=== PATIENT | male | born 1960 | race Caucasian/White ===

== ENCOUNTER → 2018-10-03 | Outpatient (CLI) | payer OTHER | LOC: HYPER 07:01 | DX: T81.89XD Other complications of procedures, not elsewhere classified, subsequent encounter (principal); I83.212 Varicose veins of right lower extremity with both ulcer of calf and inflammation; L97.212 Non-pressure chronic ulcer of right calf with fat layer exposed; I83.213 Varicose veins of right lower extremity with both ulcer of ankle and inflammation; L97.312 Non-pressure chronic ulcer of right ankle with fat layer exposed; K21.9 Gastro-esophageal reflux disease without esophagitis; G47.33 Obstructive sleep apnea (adult) (pediatric); E66.01 Morbid (severe) obesity due to excess calories; M19.90 Unspecified osteoarthritis, unspecified site; J43.8 Other emphysema; R60.0 Localized edema; R09.02 Hypoxemia; Z74.09 Other reduced mobility; Z68.43 Body mass index [BMI] 50.0-59.9, adult; Z87.891 Personal history of nicotine dependence; Y83.8 Other surgical procedures as the cause of abnormal reaction of the patient, or of later complication, without mention of misadventure at the time of the procedure ==

== ENCOUNTER → 2018-10-18 | Outpatient (CLI) | payer OTHER | LOC: HYPER 06:51 | DX: I83.212 Varicose veins of right lower extremity with both ulcer of calf and inflammation (principal); L97.812 Non-pressure chronic ulcer of other part of right lower leg with fat layer exposed; M19.90 Unspecified osteoarthritis, unspecified site; R60.0 Localized edema; K21.9 Gastro-esophageal reflux disease without esophagitis; E66.01 Morbid (severe) obesity due to excess calories; G47.33 Obstructive sleep apnea (adult) (pediatric); J43.8 Other emphysema; Z74.09 Other reduced mobility; Z68.43 Body mass index [BMI] 50.0-59.9, adult; Z87.891 Personal history of nicotine dependence ==

== ENCOUNTER → 2018-11-01 | Outpatient (CLI) | payer OTHER | LOC: HYPER 06:43 | DX: I83.212 Varicose veins of right lower extremity with both ulcer of calf and inflammation (principal); L97.812 Non-pressure chronic ulcer of other part of right lower leg with fat layer exposed; M19.90 Unspecified osteoarthritis, unspecified site; K21.9 Gastro-esophageal reflux disease without esophagitis; E66.01 Morbid (severe) obesity due to excess calories; G47.30 Sleep apnea, unspecified; R60.0 Localized edema; J43.8 Other emphysema; Z87.01 Personal history of pneumonia (recurrent); Z74.09 Other reduced mobility; Z68.43 Body mass index [BMI] 50.0-59.9, adult; Z87.891 Personal history of nicotine dependence ==

== ENCOUNTER → 2018-11-21 | Outpatient (CLI) | payer OTHER | LOC: HYPER 02:43 | DX: I83.212 Varicose veins of right lower extremity with both ulcer of calf and inflammation (principal); L97.212 Non-pressure chronic ulcer of right calf with fat layer exposed; E66.01 Morbid (severe) obesity due to excess calories; K21.9 Gastro-esophageal reflux disease without esophagitis; M19.90 Unspecified osteoarthritis, unspecified site; G47.33 Obstructive sleep apnea (adult) (pediatric); R60.0 Localized edema; E87.6 Hypokalemia; J43.9 Emphysema, unspecified; Z87.891 Personal history of nicotine dependence; Z74.09 Other reduced mobility; Z68.43 Body mass index [BMI] 50.0-59.9, adult ==

== ENCOUNTER → 2018-12-04 | Outpatient (CLI) | payer OTHER | LOC: HYPER 08:36 | DX: I83.212 Varicose veins of right lower extremity with both ulcer of calf and inflammation (principal); L97.211 Non-pressure chronic ulcer of right calf limited to breakdown of skin; L97.812 Non-pressure chronic ulcer of other part of right lower leg with fat layer exposed; E66.01 Morbid (severe) obesity due to excess calories; R60.0 Localized edema; G25.81 Restless legs syndrome; G47.33 Obstructive sleep apnea (adult) (pediatric); J43.9 Emphysema, unspecified; K21.9 Gastro-esophageal reflux disease without esophagitis; M19.90 Unspecified osteoarthritis, unspecified site; Z68.43 Body mass index [BMI] 50.0-59.9, adult; Z74.09 Other reduced mobility; Z87.891 Personal history of nicotine dependence ==

== ENCOUNTER → 2019-01-29 | Outpatient (CLI) | payer OTHER | LOC: HYPER 14:10 | DX: I83.212 Varicose veins of right lower extremity with both ulcer of calf and inflammation (principal); L97.211 Non-pressure chronic ulcer of right calf limited to breakdown of skin; I83.018 Varicose veins of right lower extremity with ulcer other part of lower leg; L97.812 Non-pressure chronic ulcer of other part of right lower leg with fat layer exposed; E66.01 Morbid (severe) obesity due to excess calories; G25.81 Restless legs syndrome; G47.33 Obstructive sleep apnea (adult) (pediatric); R60.0 Localized edema; I27.20 Pulmonary hypertension, unspecified; K21.9 Gastro-esophageal reflux disease without esophagitis; M19.90 Unspecified osteoarthritis, unspecified site; Z74.09 Other reduced mobility; Z68.43 Body mass index [BMI] 50.0-59.9, adult; Z87.891 Personal history of nicotine dependence ==

== ENCOUNTER → 2019-02-15 | Outpatient (CLI) | payer OTHER | LOC: HYPER 09:01 | DX: I83.212 Varicose veins of right lower extremity with both ulcer of calf and inflammation (principal); L97.212 Non-pressure chronic ulcer of right calf with fat layer exposed; I83.018 Varicose veins of right lower extremity with ulcer other part of lower leg; L97.812 Non-pressure chronic ulcer of other part of right lower leg with fat layer exposed; K21.9 Gastro-esophageal reflux disease without esophagitis; M19.90 Unspecified osteoarthritis, unspecified site; J43.0 Unilateral pulmonary emphysema [MacLeod's syndrome]; E66.01 Morbid (severe) obesity due to excess calories; Z68.43 Body mass index [BMI] 50.0-59.9, adult; Z87.891 Personal history of nicotine dependence ==

== ENCOUNTER → 2019-02-28 | Outpatient (CLI) | payer OTHER | LOC: HYPER 14:04 | DX: I83.212 Varicose veins of right lower extremity with both ulcer of calf and inflammation (principal); L97.212 Non-pressure chronic ulcer of right calf with fat layer exposed; I83.218 Varicose veins of right lower extremity with both ulcer of other part of lower extremity and inflammation; L97.812 Non-pressure chronic ulcer of other part of right lower leg with fat layer exposed; K21.9 Gastro-esophageal reflux disease without esophagitis; M19.90 Unspecified osteoarthritis, unspecified site; J43.8 Other emphysema; E66.01 Morbid (severe) obesity due to excess calories; Z68.43 Body mass index [BMI] 50.0-59.9, adult; Z74.09 Other reduced mobility; Z87.891 Personal history of nicotine dependence ==

== ENCOUNTER → 2019-04-09 | Outpatient (CLI) | payer OTHER | LOC: HYPER 10:05 | DX: I83.018 Varicose veins of right lower extremity with ulcer other part of lower leg (principal); L97.812 Non-pressure chronic ulcer of other part of right lower leg with fat layer exposed; I83.212 Varicose veins of right lower extremity with both ulcer of calf and inflammation; L97.212 Non-pressure chronic ulcer of right calf with fat layer exposed; L84 Corns and callosities; E66.01 Morbid (severe) obesity due to excess calories; G25.81 Restless legs syndrome; G47.33 Obstructive sleep apnea (adult) (pediatric); R60.0 Localized edema; J43.9 Emphysema, unspecified; K21.9 Gastro-esophageal reflux disease without esophagitis; M19.90 Unspecified osteoarthritis, unspecified site; Z74.09 Other reduced mobility; Z87.891 Personal history of nicotine dependence; Z68.43 Body mass index [BMI] 50.0-59.9, adult ==

== ENCOUNTER → 2019-07-09 | Outpatient (CLI) | payer OTHER | LOC: HYPER 10:46 | DX: I83.218 Varicose veins of right lower extremity with both ulcer of other part of lower extremity and inflammation (principal); L97.812 Non-pressure chronic ulcer of other part of right lower leg with fat layer exposed; L84 Corns and callosities; R21 Rash and other nonspecific skin eruption; R60.0 Localized edema; E66.01 Morbid (severe) obesity due to excess calories; G25.81 Restless legs syndrome; G47.33 Obstructive sleep apnea (adult) (pediatric); J43.9 Emphysema, unspecified; K21.9 Gastro-esophageal reflux disease without esophagitis; M19.90 Unspecified osteoarthritis, unspecified site; Z68.43 Body mass index [BMI] 50.0-59.9, adult; Z87.891 Personal history of nicotine dependence; Z74.09 Other reduced mobility ==

== ENCOUNTER → 2019-07-31 | Outpatient (CLI) | payer OTHER | LOC: HYPER 10:48 | PROVIDERS: ATTEND Emergency Medicine | DX: I83.212 Varicose veins of right lower extremity with both ulcer of calf and inflammation (principal); L97.212 Non-pressure chronic ulcer of right calf with fat layer exposed; R21 Rash and other nonspecific skin eruption; R60.0 Localized edema; E66.01 Morbid (severe) obesity due to excess calories; G25.81 Restless legs syndrome; G47.33 Obstructive sleep apnea (adult) (pediatric); J43.9 Emphysema, unspecified; K21.9 Gastro-esophageal reflux disease without esophagitis; M19.90 Unspecified osteoarthritis, unspecified site; Z74.09 Other reduced mobility; Z68.43 Body mass index [BMI] 50.0-59.9, adult ==

== ENCOUNTER → 2019-09-02 | Outpatient (CLI) | payer OTHER | LOC: HYPER 10:02 | PROVIDERS: ATTEND Emergency Medicine Emergency Medical Services | DX: I83.212 Varicose veins of right lower extremity with both ulcer of calf and inflammation (principal); L97.812 Non-pressure chronic ulcer of other part of right lower leg with fat layer exposed; R60.0 Localized edema; E66.01 Morbid (severe) obesity due to excess calories; R21 Rash and other nonspecific skin eruption; G25.81 Restless legs syndrome; G47.33 Obstructive sleep apnea (adult) (pediatric); J43.9 Emphysema, unspecified; M19.90 Unspecified osteoarthritis, unspecified site; K21.9 Gastro-esophageal reflux disease without esophagitis; Z74.09 Other reduced mobility; Z68.43 Body mass index [BMI] 50.0-59.9, adult; Z87.891 Personal history of nicotine dependence ==

== ENCOUNTER → 2019-09-23 | Outpatient (CLI) | payer OTHER | LOC: HYPER 10:31 | PROVIDERS: ATTEND Emergency Medicine Emergency Medical Services | DX: I83.212 Varicose veins of right lower extremity with both ulcer of calf and inflammation (principal); L97.211 Non-pressure chronic ulcer of right calf limited to breakdown of skin; I83.218 Varicose veins of right lower extremity with both ulcer of other part of lower extremity and inflammation; L97.812 Non-pressure chronic ulcer of other part of right lower leg with fat layer exposed; R60.0 Localized edema; R21 Rash and other nonspecific skin eruption; K21.9 Gastro-esophageal reflux disease without esophagitis; M19.90 Unspecified osteoarthritis, unspecified site; G25.81 Restless legs syndrome; G47.33 Obstructive sleep apnea (adult) (pediatric); E66.01 Morbid (severe) obesity due to excess calories; Z68.43 Body mass index [BMI] 50.0-59.9, adult; Z87.891 Personal history of nicotine dependence; Z74.09 Other reduced mobility ==

== ENCOUNTER → 2019-10-14 | Outpatient (CLI) | payer OTHER | LOC: HYPER 10:48 | PROVIDERS: ATTEND Emergency Medicine Emergency Medical Services | DX: I83.212 Varicose veins of right lower extremity with both ulcer of calf and inflammation (principal); L97.211 Non-pressure chronic ulcer of right calf limited to breakdown of skin; I83.218 Varicose veins of right lower extremity with both ulcer of other part of lower extremity and inflammation; L97.812 Non-pressure chronic ulcer of other part of right lower leg with fat layer exposed; R21 Rash and other nonspecific skin eruption; K21.9 Gastro-esophageal reflux disease without esophagitis; M19.90 Unspecified osteoarthritis, unspecified site; G25.81 Restless legs syndrome; J43.9 Emphysema, unspecified; E66.01 Morbid (severe) obesity due to excess calories; G47.33 Obstructive sleep apnea (adult) (pediatric); Z74.09 Other reduced mobility; Z68.43 Body mass index [BMI] 50.0-59.9, adult; Z87.891 Personal history of nicotine dependence ==

== ENCOUNTER → 2019-11-12 | Outpatient (CLI) | payer OTHER | LOC: HYPER 11:19 | PROVIDERS: ATTEND Emergency Medicine | DX: I83.212 Varicose veins of right lower extremity with both ulcer of calf and inflammation (principal); L97.812 Non-pressure chronic ulcer of other part of right lower leg with fat layer exposed; L97.212 Non-pressure chronic ulcer of right calf with fat layer exposed; L97.312 Non-pressure chronic ulcer of right ankle with fat layer exposed; R21 Rash and other nonspecific skin eruption; E66.01 Morbid (severe) obesity due to excess calories; G25.81 Restless legs syndrome; G47.33 Obstructive sleep apnea (adult) (pediatric); R60.0 Localized edema; J43.9 Emphysema, unspecified; K21.9 Gastro-esophageal reflux disease without esophagitis; M19.90 Unspecified osteoarthritis, unspecified site; Z74.09 Other reduced mobility; Z87.891 Personal history of nicotine dependence; Z68.43 Body mass index [BMI] 50.0-59.9, adult ==

== ENCOUNTER → 2020-01-09 | Outpatient (CLI) | payer OTHER | LOC: HYPER 12-31 15:20 | PROVIDERS: ATTEND Emergency Medicine | DX: I83.212 Varicose veins of right lower extremity with both ulcer of calf and inflammation (principal); L97.212 Non-pressure chronic ulcer of right calf with fat layer exposed; I83.218 Varicose veins of right lower extremity with both ulcer of other part of lower extremity and inflammation; L97.812 Non-pressure chronic ulcer of other part of right lower leg with fat layer exposed; R21 Rash and other nonspecific skin eruption; R60.0 Localized edema; E66.01 Morbid (severe) obesity due to excess calories; G25.81 Restless legs syndrome; G47.33 Obstructive sleep apnea (adult) (pediatric); J43.9 Emphysema, unspecified; K21.9 Gastro-esophageal reflux disease without esophagitis; M19.90 Unspecified osteoarthritis, unspecified site; Z74.09 Other reduced mobility; Z87.891 Personal history of nicotine dependence; Z68.43 Body mass index [BMI] 50.0-59.9, adult ==

== ENCOUNTER → 2020-02-04 | Outpatient (CLI) | payer OTHER | LOC: HYPER 11:01 | PROVIDERS: ATTEND Emergency Medicine | DX: I83.212 Varicose veins of right lower extremity with both ulcer of calf and inflammation (principal); L97.212 Non-pressure chronic ulcer of right calf with fat layer exposed; I83.891 Varicose veins of right lower extremity with other complications; L97.812 Non-pressure chronic ulcer of other part of right lower leg with fat layer exposed; R60.0 Localized edema; R21 Rash and other nonspecific skin eruption; K21.9 Gastro-esophageal reflux disease without esophagitis; M19.90 Unspecified osteoarthritis, unspecified site; J43.8 Other emphysema; G25.81 Restless legs syndrome; E66.01 Morbid (severe) obesity due to excess calories; G47.33 Obstructive sleep apnea (adult) (pediatric); Z68.43 Body mass index [BMI] 50.0-59.9, adult; Z74.09 Other reduced mobility; Z87.891 Personal history of nicotine dependence ==

== ENCOUNTER → 2020-03-04 | Outpatient (CLI) | payer OTHER | LOC: HYPER 10:10 | PROVIDERS: ATTEND Emergency Medicine | DX: I87.333 Chronic venous hypertension (idiopathic) with ulcer and inflammation of bilateral lower extremity (principal); L97.212 Non-pressure chronic ulcer of right calf with fat layer exposed; L97.822 Non-pressure chronic ulcer of other part of left lower leg with fat layer exposed; L97.812 Non-pressure chronic ulcer of other part of right lower leg with fat layer exposed; R60.0 Localized edema; R21 Rash and other nonspecific skin eruption; K21.9 Gastro-esophageal reflux disease without esophagitis; M19.90 Unspecified osteoarthritis, unspecified site; J43.8 Other emphysema; G25.81 Restless legs syndrome; E66.01 Morbid (severe) obesity due to excess calories; G47.33 Obstructive sleep apnea (adult) (pediatric); Z68.43 Body mass index [BMI] 50.0-59.9, adult; Z74.09 Other reduced mobility; Z87.891 Personal history of nicotine dependence ==

== ENCOUNTER → 2020-04-01 | Outpatient (CLI) | payer OTHER | LOC: HYPER 10:11 | PROVIDERS: ATTEND Emergency Medicine | DX: I83.228 Varicose veins of left lower extremity with both ulcer of other part of lower extremity and inflammation (principal); L97.822 Non-pressure chronic ulcer of other part of left lower leg with fat layer exposed; I83.212 Varicose veins of right lower extremity with both ulcer of calf and inflammation; L97.212 Non-pressure chronic ulcer of right calf with fat layer exposed; I83.218 Varicose veins of right lower extremity with both ulcer of other part of lower extremity and inflammation; L97.812 Non-pressure chronic ulcer of other part of right lower leg with fat layer exposed; I89.0 Lymphedema, not elsewhere classified; R60.0 Localized edema; R21 Rash and other nonspecific skin eruption; K21.9 Gastro-esophageal reflux disease without esophagitis; M19.90 Unspecified osteoarthritis, unspecified site; J43.8 Other emphysema; G25.81 Restless legs syndrome; E66.01 Morbid (severe) obesity due to excess calories; G47.33 Obstructive sleep apnea (adult) (pediatric); Z68.43 Body mass index [BMI] 50.0-59.9, adult; Z74.09 Other reduced mobility; Z87.891 Personal history of nicotine dependence ==

== ENCOUNTER → 2020-05-20 | Outpatient (CLI) | payer OTHER | LOC: HYPER 10:24 | PROVIDERS: ATTEND Emergency Medicine | DX: I83.228 Varicose veins of left lower extremity with both ulcer of other part of lower extremity and inflammation (principal); L97.822 Non-pressure chronic ulcer of other part of left lower leg with fat layer exposed; I83.212 Varicose veins of right lower extremity with both ulcer of calf and inflammation; L97.212 Non-pressure chronic ulcer of right calf with fat layer exposed; I83.218 Varicose veins of right lower extremity with both ulcer of other part of lower extremity and inflammation; L97.812 Non-pressure chronic ulcer of other part of right lower leg with fat layer exposed; I89.0 Lymphedema, not elsewhere classified; R60.0 Localized edema; R21 Rash and other nonspecific skin eruption; K21.9 Gastro-esophageal reflux disease without esophagitis; M19.90 Unspecified osteoarthritis, unspecified site; J43.8 Other emphysema; G25.81 Restless legs syndrome; E66.01 Morbid (severe) obesity due to excess calories; G47.33 Obstructive sleep apnea (adult) (pediatric); Z68.43 Body mass index [BMI] 50.0-59.9, adult; Z74.09 Other reduced mobility; Z87.891 Personal history of nicotine dependence ==

== ENCOUNTER → 2020-07-01 | Outpatient (CLI) | payer OTHER | LOC: HYPER 08:02 | PROVIDERS: ATTEND Emergency Medicine | DX: I83.212 Varicose veins of right lower extremity with both ulcer of calf and inflammation (principal); L97.212 Non-pressure chronic ulcer of right calf with fat layer exposed; I83.228 Varicose veins of left lower extremity with both ulcer of other part of lower extremity and inflammation; L97.822 Non-pressure chronic ulcer of other part of left lower leg with fat layer exposed; I83.218 Varicose veins of right lower extremity with both ulcer of other part of lower extremity and inflammation; L97.812 Non-pressure chronic ulcer of other part of right lower leg with fat layer exposed; I89.0 Lymphedema, not elsewhere classified; R60.0 Localized edema; R21 Rash and other nonspecific skin eruption; K21.9 Gastro-esophageal reflux disease without esophagitis; M19.90 Unspecified osteoarthritis, unspecified site; J43.8 Other emphysema; G25.81 Restless legs syndrome; E66.01 Morbid (severe) obesity due to excess calories; G47.33 Obstructive sleep apnea (adult) (pediatric); Z68.43 Body mass index [BMI] 50.0-59.9, adult; Z74.09 Other reduced mobility; Z87.891 Personal history of nicotine dependence ==

== ENCOUNTER → 2020-08-12 | Outpatient (CLI) | payer OTHER | LOC: HYPER 08:08 | PROVIDERS: ATTEND Emergency Medicine | DX: I83.212 Varicose veins of right lower extremity with both ulcer of calf and inflammation (principal); L97.212 Non-pressure chronic ulcer of right calf with fat layer exposed; I83.228 Varicose veins of left lower extremity with both ulcer of other part of lower extremity and inflammation; L97.822 Non-pressure chronic ulcer of other part of left lower leg with fat layer exposed; I83.218 Varicose veins of right lower extremity with both ulcer of other part of lower extremity and inflammation; L97.812 Non-pressure chronic ulcer of other part of right lower leg with fat layer exposed; I89.0 Lymphedema, not elsewhere classified; R60.0 Localized edema; R21 Rash and other nonspecific skin eruption; K21.9 Gastro-esophageal reflux disease without esophagitis; M19.90 Unspecified osteoarthritis, unspecified site; J43.8 Other emphysema; G25.81 Restless legs syndrome; E66.01 Morbid (severe) obesity due to excess calories; G47.33 Obstructive sleep apnea (adult) (pediatric); Z68.43 Body mass index [BMI] 50.0-59.9, adult; Z74.09 Other reduced mobility; Z87.891 Personal history of nicotine dependence ==

== ENCOUNTER 2020-09-03 16:43 | Inpatient (IN) | payer OTHER ==
[~2020-09-03] VITALS: Ht 177.8 cm; Wt 178.5 kg
[2020-09-03] MEDS ORDERED: CLOTRIMAZOLE-BE15 GM TOP (19:49)
[2020-09-03] MEDS ORDERED: NYSTATIN 100,0015 G1 (19:51)
[2020-09-03] MEDS ORDERED: NORCO7.5 PO (19:51)
[2020-09-03] MEDS ORDERED: DOXYCYCLINE MO100 MG (19:52)
[2020-09-03] MEDS ORDERED: GENTAMICIN SULF15 GM (19:52)
[2020-09-03] MEDS ORDERED: METOLAZONE 2.52.5 M1 (19:53)
[2020-09-03] MEDS ORDERED: CLOBETASOL PROP15 GM (19:53)
[2020-09-03] MEDS ORDERED: NEURONTIN 300M300 M2 (19:55)
[2020-09-03] MEDS ORDERED: ADVAIR 250-501 EACH (19:57)
[2020-09-03] MEDS ORDERED: MELOXICAM15 MG (19:58)
[2020-09-03] MEDS ORDERED: HYDROXYZINE HCL10 M2 (19:58)
[2020-09-03] MEDS ORDERED: FUROSEMIDE 80 M80 M1 (19:58)
[2020-09-03] MEDS ORDERED: PROAIR HFA8.5 GM INH (20:00)
[2020-09-03 20:01] VITALS: BP 126/65
[2020-09-03] MEDS ORDERED: SANTYL OINTMENT30 G1 TOP (20:01)
[2020-09-03] MEDS ORDERED: SPIRONOLACTONE25 MG PO (20:01)
[2020-09-03] MEDS ORDERED: DAKIN'S473 ML TOP (20:03)
[2020-09-03] MEDS ORDERED: POTASSIUM CHLO10 ME1 PO (20:03)
[2020-09-03 20:17] LABS: HEMOGLOBIN 13.9 gm/dL (14.0-18.0); MCH 32.1 pg (26.0-34.0); MCHC 34.8 g/dL (28.0-37.0); MCV 92.3 fL (80.0-100.0); RBC 4.33 mil/uL (4.50-6.00); RDW 13.3 % (10.5-14.5); WBC 8.6 thou/uL (4.0-11.0)
[2020-09-03 20:29] LABS: CALCIUM 9.3 mg/dL (8.5-10.1); CREATININE 0.9 mg/dL (0.7-1.3); POTASSIUM 3.2 mmol/L (3.5-5.1)
--- NOTE | 2020-09-04 02:51 | NUR ---
PT CARE ASSUMED WITH PT IN BED WATCHING TV AT 1900.PT IS A/O X4.PT IS FROM HOME.PT HAS BLE CELLULITIS.PT HAS SLEEP APNEA AND USES CPAP AT HOME AND O2 2L VIA NC HERE AT NIGHT.ADMISSION SYSTEM ASSESSMENT DONE.PT CHOOSE TO SLEEP IN THE CHAIR.PT IS UP WITH X1 ASSIST WITH WALKER OR CANE AND USES A URINAL OR BATHROOM.WILL CONTINUE TO MONITOR
[2020-09-04 03:20] VITALS: BP 117/59
[2020-09-04 03:34] LABS: HEMATOCRIT 38.4 % (42.0-52.0); HEMOGLOBIN 13.1 gm/dL (14.0-18.0); MCH 31.6 pg (26.0-34.0); MCHC 34.1 g/dL (28.0-37.0); MCV 92.7 fL (80.0-100.0); RBC 4.15 mil/uL (4.50-6.00); RDW 13.3 % (10.5-14.5)
[2020-09-04 04:08] LABS: CALCIUM 8.8 mg/dL (8.5-10.1); CREATININE 0.9 mg/dL (0.7-1.3); POTASSIUM 3.4 mmol/L (3.5-5.1)
[2020-09-04 07:25] VITALS: BP 121/66
--- NOTE | 2020-09-04 12:55 | NUR ---
WOUND CARE CONSULT; ROUNDING WITH DR ANATOLY HUNTLEY TODAY. BILATERAL LE EDEMA WAS SEEN TODAY. THERE ARE WOUNDS ON THE LEFT LE WHICH ARE EXTREMLEY TENDER. BEEFY RED WOUND BED. I NOTICED NO ODER. RECOMMEDNATIONS; BLE WRAPS WITH SILV/MORPHINE CREAM, XEROFORM,ABD, KERLIX.
[2020-09-04 15:35] VITALS: BP 114/57
--- NOTE | 2020-09-04 15:48 | NUR ---
ASSESSMENT: CM REVIEWED CHART AND SPOKE WITH PATIENT AT THE BEDSIDE. PT IS ALERT AND ORIENTED X4. PT WAS ADMITTED DUE TO LE CELLULITIS AND IS ON IV ANBX AND ID CONSULTED. 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 PT REPORTS HE HAS A RAMP TO ENTER. PT REPORTS HER NORMALLY AMBULATES USING 1-2 CANES. PT REPORTS HE HAS A WALKER AT HOME BUT DOES NOT USE IT. PT REPORTS HE HAS A GRAB BAR IN THE SHOWER BUT HAS A HARD TIME SHOWERING DUE TO HIS WEIGHT (AROUND 400LBS HE STATES). PT REPORTS HE CANNOT FIT A SHOWER CHAIR IN THE SHOWER. PT STATES HE HAS HAD HH IN THE PAST BUT UNSURE THE AGENCY. PT REPORTS THAT HE GOES TO [facility] FOR LYMPHEDEMA WRAPPING MWF IT IS THE NEAREST HOSPITAL. PT REPORTS HIS BROTHER IS SUPPORTIVE BUT LIVES IN [place]. PT REPORTS THAT HIS NEAREST NEIGHBOR LIVES A MILE AWAY AND HE LIKES HIS SPACE. CM SPOKE WITH ATTENDING AND PT WILL BE HERE THROUGH THE WEEKEND. PT REPORTS THAT HE HAS A CPAP MACHINE AT HOME WELL OXYGEN. PT REPORTS HAVING A MACHINE TO MAKE HIS OWN OXYGEN. PT STATES HIS HOUSE IS WELL EQUIPT WITH RAMPS HIS FATHER WAS BILATERAL AMPUTEE. CM WILL FOLLOW UP ON MONDAY.
--- NOTE | 2020-09-04 19:36 | HC ---
[facility] [place] [address] CONSULTATION Name: JOSE DE JESUS STANTON Room #: 4- ADM IN M.R.#: [id number] Admission: 09/03/20 Attend Phys: Paul Bowman MD Discharge: Date of : 60 Report #: [id number] THIS REPORT FOR: cc: TYE - No family physician/PCP TYE - No family physician/PCP Scottie Jean MD ~ DATE OF SERVICE: 09/03/2020 INFECTIOUS DISEASE CONSULTATION REASON FOR CONSULTATION: I was asked to evaluate concerning left lower extremity bullous cellulitis. HISTORY OF PRESENT ILLNESS: The patient is a 59-year-old who presents with increased pain, swelling, erythema and drainage from his left lower extremity. He has been dealing with venous stasis disease and chronic lymphedema of both lower extremities for over a decade. He is morbidly obese. He is disabled due to his pulmonary status along with lower extremities and obesity. He has been followed by Dr. Christopher Hawkins for several years. He has a chronic and recurring venous stasis ulcers to his lower extremities. He has had recurring episodes of cellulitis. He has been on doxycycline over the last several weeks for bronchitis. This has now improved. He presented to the wound care service today with a 1-week history of increased pain, swelling, erythema along with blistering of his lower extremity on the left. He has had no fever, chills or sweats. He has a significant amount of pain in the left lower extremity. He is on 2 liters of oxygen per nasal cannula as he has bullous emphysema, longstanding. He is a past smoker. REVIEW OF SYSTEMS: A 14-point review of system was negative other than what has been described above. No report of diabetes. ALLERGIES: TAPE. MEDICATIONS: As noted on his APR, having been started on vancomycin and cefepime this evening. PAST MEDICAL HISTORY: Degenerative arthritis, COPD, coronary artery disease, tonsillectomy, appendectomy, obstructive sleep apnea, bullous emphysema. FAMILY HISTORY: Negative for tuberculosis. SOCIAL HISTORY: He is a past smoker, no significant alcohol intake. Lives [place] [facility]. PHYSICAL EXAMINATION: GENERAL: He is afebrile and hemodynamically stable, cooperative and pleasant, [facility] [address] [place] [address] CONSULTATION Name: JOSE DE JESUS STANTON Room #: 444- ADM IN M.R.#: [id number] Admission: 09/03/20 Attend Phys: Paul Bowman MD Discharge: Date of : 60 Report #: [id number] in no acute distress, morbidly obese. EXTREMITIES: Left lower extremity with a bullous cellulitis and lymphangitis that extends up to the mid medial left thigh. Mild intertrigo in his groin. Chronic venous stasis changes to both lower extremities. HEENT: No palpable adenopathy. Eyes without scleral icterus. Mouth without mucositis. NECK: Supple. LUNGS: Clear. HEART: Regular, without murmur, gallop or rub. ABDOMEN: Obese, soft and nontender. : External genitalia and rectal examination not performed. Could not palpate pulses in his feet, although he was markedly edematous bilaterally. No spinal tenderness. No CVA tenderness. LABORATORY DATA: Reviewed. MICROBIOLOGY: Reviewed. IMPRESSION: A 59-year-old morbidly obese gentleman with chronic venous stasis disease with venous stasis ulcers and recurrent cellulitis, now presents with not only cellulitis with lymphangitis of the left lower extremity. Still suspect streptococcal infection in this setting. ____ the patient has been on recent antibiotics. RECOMMENDATIONS: We will continue broad antibiotic coverage, pending culture results. Control edema. Continue wound care. We will need aggressive weight loss, diet and possibly procedure. <ELECTRONICALLY SIGNED> By: Scottie Jean MD 09/04/20 [id number] Scottie Jean MD /nt
[2020-09-04 20:00] VITALS: BP 128/67
[2020-09-05 02:06] LABS: GLYCOHEMOGLOBIN (HGB A1C) 5.7 % (4.8-5.6)
[2020-09-05 04:35] VITALS: BP 122/69
[2020-09-05 05:22] LABS: HEMATOCRIT 39.1 % (42.0-52.0); HEMOGLOBIN 13.5 gm/dL (14.0-18.0); MCH 32.2 pg (26.0-34.0); MCHC 34.6 g/dL (28.0-37.0); MCV 93.1 fL (80.0-100.0); RBC 4.2 mil/uL (4.50-6.00); RDW 13.3 % (10.5-14.5); WBC 5.8 thou/uL (4.0-11.0)
[2020-09-05 05:29] LABS: CALCIUM 8.9 mg/dL (8.5-10.1); CREATININE 0.8 mg/dL (0.7-1.3); POTASSIUM 3.8 mmol/L (3.5-5.1)
[2020-09-05 07:30] VITALS: BP 122/55
--- NOTE | 2020-09-05 15:30 | NUR ---
ASSUMED PT CARE THIS AM. PT IS ALERT & ORIENTED X4. PT HAS IV SITE ON L FA SALINE LOCKED. PT IS UP WITH ASSIST X1 WITH WALKER AND CANE. PT HAS CONDOM CATH IN PLACE. PT IS ON ROOM AIR DURING THE DAY AND 2L O2 NC DURING NIGHT DUE TO SLEEP APNEA. DID WOUND CARE ON BILATERAL LOWER EXTREMITIES WITH NS, SILVER SULFADIAZINE MORPHONE SULFATE, XEROFORM, ABD AND KERLIX. PT TOLERATED DIET AND MEDICATION DURING THE SHIFT. NO C/O OF NAUSEA AND VOMITING. PT ON THE CHAIR WITH CALL LIGHT WITHIN REACH. WILL CONTINUE TO MONITOR PT. FOLLOW POC.
[2020-09-05 16:42] VITALS: BP 132/67
[2020-09-05 20:47] VITALS: BP 129/69
--- NOTE | 2020-09-06 05:02 | NUR ---
PT IN RECLINER. CONDOM CATH IN PLACE. LORTAB AND MORPHINE PROVIDING PAIN RELIEF. RESTING COMFORTABLY. NO NEEDS VOICED. CALL LIGHT WITHIN REACH. FREQUENT OBSERVATION.
[2020-09-06 09:00] VITALS: BP 143/77
[2020-09-06 17:05] VITALS: BP 126/64
[2020-09-06 19:24] VITALS: BP 129/71
--- NOTE | 2020-09-07 04:14 | NUR ---
PT IN CHAIR. LORTAB AND OXY IR PROVIDING PAIN RELIEF. CONDOM CATH IN PLACE. RESTING COMFORTABLY. NO NEEDS VOICED. CALL LIGHT WITHIN REACH. FREQUENT OBSERVATION.
[2020-09-07 06:19] LABS: ALBUMIN 2.3 g/dL (3.4-5.0); CREATININE 0.8 mg/dL (0.7-1.3); MAGNESIUM 2.1 mg/dL (1.8-2.4); PHOSPHORUS 3.4 mg/dL (2.5-4.9); POTASSIUM 4.5 mmol/L (3.5-5.1); TOTAL BILIRUBIN 0.5 mg/dL (0.2-1.0); TOTAL PROTEIN 7.2 g/dL (6.4-8.2)
[2020-09-07 06:20] LABS: ABSOLUTE NEUTROPHILS 4.7 thou/uL (1.4-8.2); BASOPHILS 0.6 % (0.0-2.0); EOSINOPHILS 0.6 % (0.0-3.0); HEMATOCRIT 39.3 % (42.0-52.0); HEMOGLOBIN 13.5 gm/dL (14.0-18.0); LYMPHOCYTES 9.3 % (24.0-44.0); MCH 31.9 pg (26.0-34.0); MCHC 34.3 g/dL (28.0-37.0); MONOCYTES 10.1 % (1.0-8.0); PLATELET COUNT 225 thou/uL (150-400); POLYS 79.4 % (36.0-66.0); RBC 4.22 mil/uL (4.50-6.00); RDW 13.2 % (10.5-14.5)
[2020-09-07 08:56] VITALS: BP 112/61
--- NOTE | 2020-09-07 09:57 | NUR ---
Assumed care of pt at 0700. PT a&ox4. C/o pain in left lower extremity. Prn pain medicine administered per patient request. Dressing changed. On 2L O2. Condom cath in place. Call light within reach. Fall precautions in place. Will continue to monitor.
--- NOTE | 2020-09-07 14:00 | HC ---
[facility] [place] [address] CONSULTATION Name: JOSE DE JESUS STANTON Room #: 444- ADM IN M.R.#: [id number] Admission: 09/03/20 Attend Phys: Paul Bowman MD Discharge: Date of : 60 Report #: [id number] THIS REPORT FOR: cc: TYE - No family physician/PCP TYE - No family physician/PCP Christopher Hawkins MD ~ DATE OF SERVICE: 09/04/2020 WOUND CARE CONSULTATION PERSONAL PHYSICIAN: None on staff. CHIEF COMPLAINT: Left lower extremity cellulitis. HISTORY OF PRESENT ILLNESS: This is a 59-year-old white male who I have been following for chronic venous insufficiency with secondary lymphedema for several months. The patient had been well controlled with no open ulcerations for the past several weeks with compressive wrapping 3 times weekly and the use of daily compression pumps. However, within the past three days, he has developed increased erythema, warmth, and blisters on his left lower extremity. The patient states that is causing some mild to moderate pain approximately 4/10, worse when he is up and ambulating and better when he is sitting with elevating his legs. The patient denies fevers, but has had chills. The patient was seen in my clinic yesterday with this situation and the patient was admitted to the hospital for IV antibiotics, aggressive elevation, and compression. The patient at this time has no other associated wounds. The patient's right leg has venous insufficiency with swelling, but no open ulcerations. PAST MEDICAL HISTORY: Significant for COPD, sleep apnea, chronic venous insufficiency with secondary lymphedema and intermittent ulcerations, chronic osteoarthritis, and morbid obesity. MEDICATIONS: Multiple, I reviewed the patient's medication list. DRUG ALLERGIES: INCLUDE CODEINE AND TAPE. SOCIAL HISTORY: The patient does not smoke, but has a history of smoking, quitting greater than a year ago. Does not drink alcohol or use drugs. Lives at home independently. FAMILY HISTORY: Not pertinent to current medical condition. REVIEW OF SYSTEMS: CONSTITUTIONAL: The patient denies fevers or chills. NEUROLOGIC: The patient complains of mild generalized weakness, but no isolated weakness in arms or legs. [facility] [address] [place] [address] CONSULTATION Name: JOSE DE JESUS STANTON Room #: 444-P ADM IN M.R.#: [id number] Admission: 09/03/20 Attend Phys: Paul Bowman MD Discharge: Date of : 60 Report #: [id number] EYES: No complaints. EARS, NOSE AND THROAT: No complaints. CARDIAC: The patient has chronic lower extremity edema without chest pain or palpitations. RESPIRATORY: The patient has mild shortness of breath with dyspnea on exertion and orthopnea, but no actual cough or wheezes. GASTROINTESTINAL: The patient denies nausea, vomiting, or abdominal pain. GENITOURINARY: The patient denies urgency or frequency. MUSCULOSKELETAL: No complaints. SKIN: The patient has bullous cellulitis, left lower extremity. PHYSICAL EXAMINATION: VITAL SIGNS: Temperature 36.6, pulse 66, respirations 18, and BP 121/66. GENERAL: This is an alert and oriented x3 morbidly obese white male, who is in mild distress secondary to symptoms. HEENT: Normocephalic, atraumatic. Mucous membranes are somewhat dry. Pupils are round. Sclerae white. NECK: Without JVD. LUNGS: Diminished breath sounds heard throughout. HEART: Regular. ABDOMEN: Obese, soft, and nontender. EXTREMITIES: Left lower extremity reveals slightly decreased erythema and warmth to the left lower extremity from yesterday. There is no development of any new blisters or bullous lesions on the left lower extremity. Please note the previous bullous lesions had been unroofed in my clinic yesterday. The leg is still exquisitely tender. Bilateral heels are intact. Right lower extremity has a 2-3+ edema with no associated open ulcerations, erythema or warmth. NEUROLOGIC: Cranial nerves II-XII grossly intact. Motor and sensory are grossly intact. LABORATORY DATA: White count 8.0, hemoglobin 13.1, BUN 25, and creatinine 0.9. IMPRESSION: 1. Bullous cellulitis, left lower extremity concerning for strep cellulitis. Cultures pending. 2. Chronic venous insufficiency with secondary lymphedema and recurrent ulcerations, bilateral lower extremities. 3. Morbid obesity. 4. Generalized debility. 5. Chronic obstructive pulmonary disease with oxygen dependent. PLAN: At this time, IV antibiotics have already been started by infectious disease, Dr. Scottie Jean. We will add morphine, Silvadene cream to the left lower extremity open ulcerations, cover this with Xeroform, ABD, Kerlix, and Leonides. We will keep his leg elevated as much as possible. I spoke with Dr. Bowman [address] [place] [address] CONSULTATION Name: ROMYJOSE DE JESUS Room #: 444-[facility] IN M.R.#: [id number] Admission: 09/03/20 Attend Phys: Paul Bowman MD Discharge: Date of : 60 Report #: [id number] about starting the patient on IV Lasix 80 mg daily to mobilize some of the excess fluid that the patient. We will continue all other current medications. We will continue to follow the patient. <ELECTRONICALLY SIGNED> By: Christopher Hawkins MD 09/07/20 1400 1202 [id number] Christopher Hawkins MD /nt
--- NOTE | 2020-09-07 14:44 | NUR ---
ON-GOING ASSESSMENT: CM REVIEWED CHART AND SPOKE WITH ATTENDING WHO REPORTS HE IS AWAITING FINAL RECS FROM ID. CM MET WITH PATIENT AT THE BEDSIDE TO DISCUSS DISCHARGE PLANS. PT REPORTS HE IS WANTING TO SEE IF SOMEONE CAN COME TO HIS HOME TO HELP HIM SHOWER BUT REPORTS LIVING IN AN AREA NOT MANY SERVICE. CM DISCUSSED POSSIBLE NEED FOR HH AT DISCHARGE AND POSSIBLE NEED OF IV ANTIBIOTICS. PT REPORTS THAT HE HAS GONE TO [facility] IN THE PAST FOR OUTPATIENT INFUSION BUT REPORTS HE FEELS HE HAS A HARD TIME GETTING IN AND OUT OF THE HOME AND WOULD PREFER HOME INFUSION IF ABLE. CM REACHED OUT TO [facility] WHO SERVICES [place] AND SPOKE WITH [facility]. [facility] REPORTS THAT THEY HAVE HAD PT ON SERVICES WITH THEM IN THE PAST AND ARE THE ONLY HOME HEALTH TO SERVICES HIS AREA. CM DISCUSSED PATIENT WILL LIKELY NEED LYMPHEDEMA WRAPPING AND POSSIBLE IV ANBX AT DISCHARGE. SHE REPORTS THEY CAN GO OUT 3X/WEEK TO ASSIST AND ARE NOT LYMPHEDEMA CERTIFIED BUT CAN DO WRAPPINGS. CM FAXED REFERRAL TO [facility]. CM ALSO SPOKE WITH [facility] WHO REPORTS THEY CAN SERVICE HIS AREA IF NEEDING HOME IV ANBX. PT AGREEABLE WITH REFERRAL. REFERRAL SENT AND AWAITING PTS BENEFITS FOR HOME INFUSION IF NEEDED AT DISCHARGE. AWAITING FURTHER RECOMMENDATIONS AT THIS TIME AND IF PATIENT DOES NEED IV ANBX AT DISCHARGE WILL LIKELY NEED PICC PLACED. CM WILL CONTINUE TO FOLLOW TO ASSIST NEEDED.
[2020-09-07 16:10] VITALS: BP 109/50
[2020-09-07 19:29] VITALS: BP 126/61
--- NOTE | 2020-09-08 02:00 | NUR ---
ASSUMED PT CARE AT 1900.PT WAS OBSERVED SITTING IN THE RECLINER IN HIS ROOM WITH LESG ELEVATED AT SHIFT CHANGE.PT STATED THAT HE SLEEPS IN THE RECLINER BC IT IS MORE COMFORTABLE FOR HIM.BLE DRSG INTACT.PT REF DRSG CHANGE AT HS WOULD WANT IT DONE AT 3AM.PT CONT ON IV ABX.IV ACCESS REPLACED AT HS.CALL LIGHT WITHIN REACH.
[2020-09-08 03:45] VITALS: BP 140/62
[2020-09-08 07:34] VITALS: BP 132/68
--- NOTE | 2020-09-08 14:59 | NUR ---
ON-GOING ASSESSMENT: KHANH SPOKE WITH [facility] WHO REPORTS THEY RAN PATIENTS BENEFITS FOR HOME INFUSION AND PT HAS AN OUT OF POCKET COST 6700/849.31 MET BUT NOT INCLUDING THIS HOSPITALIZATION. ONCE OOP IS MET PT IS COVERED THEN AT 100 PERCENT. DEDUCTIBLE 0/0 COVERAGE AT 80PERCENT. TOTAL FOR DRUG AND SUPPLIES IS 91/WEEK (13/DAY) FOR CURRENTCEFEPIME 1GM Q12 HRS. KHANH VERIFIED WITH DR BRIGHT THAT THIS ANBX WILL REMAIN THE SAME. PT IS AGREEABLE WITH THIS COST AND SPOKE WITH DEBBIE AT [facility]. DEBBIE HAS SENT PATIENT WELL HIS BROTHER ERI THE VIDEO FOR HOME INFUSION AND ASKED TO CALL WITH ANY QUESTIONS. DEBBIE AT [facility] STATING SHE CAN DO BEDSIDE TEACHING BUT PT DOES NOT FEEL THIS IS NECESSARY AND STATING HE CAN FOLLOW THE VIDEO. [facility] WILL DELIVER THE ANBX AND SUPPLIES TO PT PRIOR TO HIM DISCHARGING AND REPORT A BEDSIDE TEACHING CAN BE COMPLETED TOMORROW. KHANH NOTIFIED [facility] PT IS HOPEFUL TO DISCHARGE EARLY IN THE AM. PT AWAITING TO HAVE PICC LINE PLACED. KHANH ALSO SPOKE WITH LEDA AT [facility] TO UPDATE AND NOTIFIED LIKELY DISCHARGE TOMORROW. SHE REQUEST AT TIME OF DISCHARGE THE ORDERS BE FAXED TO THEM AT [phone]. KHANH ATTEMPTED TO REACH PTS BROTHER ERI TO UPDATE BUT VM WAS LEFT.
[2020-09-08] MEDS ORDERED: CEFEPIME 11 GM/50 ML IV (16:32)
[2020-09-08] MEDS ORDERED: SSD CREAM 1% 5050 GM TOP (16:34)
--- NOTE | 2020-09-08 18:08 | NUR ---
A #4F SINGLE LUMEN PICC WAS PLACED PER HOSPITAL POLICY. THE LINE WAS TRIMMED TO 48CM AND ADVANCED WITHOUT DIFFICULTY. THE PATIENT WAS UNABLE TO LAY IN THE BED SO THE PROCEDURE WAS DONE IN THE CHAIR. THE LINE WAS CONFIRMED AT 2CM EXTERNAL WITH SHERLOCK 3CG. THE LINE WAS SECURED AND RELEASED FOR USE
--- NOTE | 2020-09-08 18:34 | NUR ---
Pt A X O X4 unable to ambulate. Using a condom catheter. Has bilateral lower extremity cellulitus. Wound is weeping sanguinous drainage. Wound care done per order. Pt c/o pain medicated per order. Pt had BM today. Pt sat up in chair most of shift. Said it is painful for him to lay in bed. Call light within reach.
[2020-09-08 19:31] VITALS: BP 129/67
--- NOTE | 2020-09-09 03:45 | NUR ---
PT IS A/O X4 AND IS UP WITH ASSISTANCE. ROOM AIR. VSS AFEBRILE. C/O PAIN TO BILAT LE. PRN PAIN MEDICATION GIVEN DIRECTED. WOUND CARE COMPLETED TO BILAT LE. DRSGS ARE C/D/I. FALL PRECAUTIONS IN PLACE, CALL LIGHT IS WITHIN REACH. WILL CONTINUE TO MONITOR.
[2020-09-09 04:37] VITALS: BP 119/66
[2020-09-09 07:45] VITALS: BP 119/61
[2020-09-09 09:18] VITALS: BP 119/66
--- NOTE | 2020-09-09 13:14 | NUR ---
ASSUMED PT CARE THIS AM. PT IS ALERT & ORIENTED X4. PT HAS R UA PICC LINE SALINE LOCKED. PT IS UP WITH ASSIST X1 AND USES CANE. DID WOUND CARE ON BILATERAL LOWER EXTREMITIES WITH NS, SILVADENE/MORPHINE, XEROFORM, SBD, KERLIX, AND VENESSA. PLACED A NEW CONDOM EXTERNAL CATH PT REQUEST. CALLED RONAN AT [facility] REGARDING PT UPDATE. EDUCATED AND INFORMED PT ABOUT DISCHARGE INSTRUCTION SUCH WHEN TO FOLLOW UP AND MEDICATION. GIVEN PAIN MEDICATION PER PT REQUEST. PT SIGNED DISCHARGE FORM. PT FAMILY AT THE BED, BED ON THE CHAIR WITH CALL LIGHT WITHIN REACH. WILL CONTINUE TO MONITOR PT. FOLLOW POC.
--- NOTE | 2020-09-09 13:41 | NUR ---
ON-GOING ASSESSMENT: CM REVIEWED CHART AND SPOKE WITH PATIENT. PT HAS ORDERS TO DISCHARGE HOME TODAY WITH HH AND IV ANBX. CM NOTIFIED [facility] AND SPOKE WITH LEDA, KHANH ALSO FAXED DISCHARGE PAPERWORK AND CONFIRMED THEY RECEIVED IT AND ARE AWARE HE IS GOING HOME ON IV ANBX AND THEY REPORT THEY HAVE ALL THE INFORMATION THEY NEED TO START SERVICES. [facility] REQUEST THAT BEDSIDE RN CONTACT THEIR RN RONAN TO GIVE A BRIEF REPORT AT [phone]. CM NOTIFIED BEDSIDE RN AND SHE HAS AGREED. CM SPOKE WITH DEBBIE AT [facility] THIS AM AND FAXED OVER DISCHARGE PAPERWORK/PICC CONFIRMATION/LABS AND CONFIRMED THEY RECEIVED IT. DEBBIE THE [facility] CAME AND DID A BEDSIDE TEACHING THIS AM WITH PATIENT AND HIS NIECE AT THE BEDSIDE AND PT IS COMFORTABLE GOING HOME. [facility] DELIVERED HIS SUPPLIES/ANBX TO THE HOSPITAL FOR HIM TO TAKE HOME WITH HIM. PTS NIECE IS ASSISTING PATIENT HOME. KHANH SPOKE WITH DR. ZHANG FROM OR PT IS DISCHARGING ON IV ANBX AND HE WAS GOING TO HAVE PATIENT FOLLOW UP AT OUTPT INFUSION CLINIC AT [facility] BUT CM SPOKE WITH [facility] IN OUTPATIENT INFUSION AND REPORTS HER DRUGLESS DOCTOR STATES THEY CANNOT DO THAT AND PT WILL HAVE TO FOLLOW UP AT DR. MEEK OFFICE. CM NOTIFIED PATIENT OF NEED FOR FOLLOW UP AT DR. MEEK OFFICE IN A WEEK AND HIS NUMBER IS ON THE DISCHARGE PAPERWORK AND DISCUSSED IMPORTANCE OF FOLLOW UP. PT STATING MAY BE HE WILL MAYBE HE WONT DEPENDING ON HOW HE IS FEELING AND SUCH A LONG DRIVE. CM AGAIN DISCUSSED IMPORTANCE OF FOLLOW UP, CM SPOKE WITH DR ZHANG WHO IS ALSO NOTIFIED. PTS BROTHER ERI PLANS ON TAKING OFF WORK AND SPENDING SOME TIME WITH PATIENT FOR A WEEK OR SO TO HELP ASSIST IF NEEDED. CM ALSO SPOKE WITH CM DIRECTOR BUT PTS MORPHINE/SILVADENE CREAM WAS VOUCHERED BY CASE MANAGEMENT PTS PHARMACY BACK HOME DOES NOT COMPOUND IT. CM PICKED UP CREAM FROM OUTPATIENT PHMARMACY AND PROVIDED TO BEDSIDE RN TO GIVE TO PT AT DISCHARGE AND CM ALSO NOTIFIED PATIENT. PT REPORTS NO FURTHER NEEDS FROM CM AT THIS TIME.
[2020-09-09] MEDS ORDERED: PERCOCET 5-3251 EACH PO (16:11)
== END 2020-09-09 14:34 | disposition home health service (06) | DRG 602 ==
LOC: 4S 16:43
PROVIDERS: Internal Medicine; Specialist; ADMIT Hospitalist; ATTEND Hospitalist
PROC: 05HY33Z Insertion of Infusion Device into Upper Vein, Percutaneous Approach (ICD-10-PCS; principal; 2020-09-08)
DX: L03.116 Cellulitis of left lower limb (principal); E43 Unspecified severe protein-calorie malnutrition; L97.929 Non-pressure chronic ulcer of unspecified part of left lower leg with unspecified severity; L97.919 Non-pressure chronic ulcer of unspecified part of right lower leg with unspecified severity; J96.11 Chronic respiratory failure with hypoxia; Z68.43 Body mass index [BMI] 50.0-59.9, adult; E66.01 Morbid (severe) obesity due to excess calories; M19.90 Unspecified osteoarthritis, unspecified site; I25.10 Atherosclerotic heart disease of native coronary artery without angina pectoris; G47.33 Obstructive sleep apnea (adult) (pediatric); J43.9 Emphysema, unspecified; I87.8 Other specified disorders of veins; R53.81 Other malaise; I89.0 Lymphedema, not elsewhere classified; D64.9 Anemia, unspecified; L03.115 Cellulitis of right lower limb; Z79.899 Other long term (current) drug therapy; Z71.3 Dietary counseling and surveillance; Z90.49 Acquired absence of other specified parts of digestive tract; Z87.891 Personal history of nicotine dependence; Z99.81 Dependence on supplemental oxygen; Z88.6 Allergy status to analgesic agent
CPT/HCPCS: 10102; 27000

== ENCOUNTER → 2020-09-23 | Outpatient (CLI) | payer OTHER ==
[~2020-09-23] MED LIST: ADVAIR 250-501 EACH; CEFEPIME 11 GM/50 ML IV; CLOBETASOL PROP15 GM; CLOTRIMAZOLE-BE15 GM TOP; DAKIN'S473 ML TOP; DOXYCYCLINE MO100 MG; FUROSEMIDE 80 M80 M1; GENTAMICIN SULF15 GM; HYDROXYZINE HCL10 M2; MELOXICAM15 MG; METOLAZONE 2.52.5 M1; NEURONTIN 300M300 M2; NORCO7.5 PO; NYSTATIN 100,0015 G1; PERCOCET 5-3251 EACH PO; POTASSIUM CHLO10 ME1 PO; PROAIR HFA8.5 GM INH; SANTYL OINTMENT30 G1 TOP; SPIRONOLACTONE25 MG PO; SSD CREAM 1% 5050 GM TOP
== END ==
LOC: HYPER 07:52
PROVIDERS: ATTEND Emergency Medicine
DX: S80.822A Blister (nonthermal), left lower leg, initial encounter (principal); S90.522A Blister (nonthermal), left ankle, initial encounter; I83.212 Varicose veins of right lower extremity with both ulcer of calf and inflammation; L97.212 Non-pressure chronic ulcer of right calf with fat layer exposed; L03.116 Cellulitis of left lower limb; L84 Corns and callosities; I89.0 Lymphedema, not elsewhere classified; R60.0 Localized edema; R21 Rash and other nonspecific skin eruption; E66.01 Morbid (severe) obesity due to excess calories; G25.81 Restless legs syndrome; G47.33 Obstructive sleep apnea (adult) (pediatric); K21.9 Gastro-esophageal reflux disease without esophagitis; J43.8 Other emphysema; M19.90 Unspecified osteoarthritis, unspecified site; Z74.09 Other reduced mobility; Z87.891 Personal history of nicotine dependence; X58.XXXA Exposure to other specified factors, initial encounter; Y93.89 Activity, other specified; Y92.89 Other specified places as the place of occurrence of the external cause; Y99.8 Other external cause status; Z68.43 Body mass index [BMI] 50.0-59.9, adult

== ENCOUNTER → 2020-10-21 | Outpatient (CLI) | payer OTHER | LOC: HYPER 08:09 | PROVIDERS: ATTEND Emergency Medicine | DX: S80.822D Blister (nonthermal), left lower leg, subsequent encounter (principal); S90.522D Blister (nonthermal), left ankle, subsequent encounter; I83.212 Varicose veins of right lower extremity with both ulcer of calf and inflammation; L97.212 Non-pressure chronic ulcer of right calf with fat layer exposed; L03.116 Cellulitis of left lower limb; L84 Corns and callosities; I89.0 Lymphedema, not elsewhere classified; R60.0 Localized edema; R21 Rash and other nonspecific skin eruption; E66.01 Morbid (severe) obesity due to excess calories; G25.81 Restless legs syndrome; G47.33 Obstructive sleep apnea (adult) (pediatric); K21.9 Gastro-esophageal reflux disease without esophagitis; J43.8 Other emphysema; M19.90 Unspecified osteoarthritis, unspecified site; Z68.43 Body mass index [BMI] 50.0-59.9, adult; Z74.09 Other reduced mobility; Z87.891 Personal history of nicotine dependence; X58.XXXD Exposure to other specified factors, subsequent encounter ==

== ENCOUNTER → 2020-12-02 | Outpatient (CLI) | payer OTHER | LOC: HYPER 08:02 | PROVIDERS: ATTEND Emergency Medicine | DX: I83.212 Varicose veins of right lower extremity with both ulcer of calf and inflammation (principal); L97.211 Non-pressure chronic ulcer of right calf limited to breakdown of skin; S80.822D Blister (nonthermal), left lower leg, subsequent encounter; L03.116 Cellulitis of left lower limb; I89.0 Lymphedema, not elsewhere classified; R60.0 Localized edema; R21 Rash and other nonspecific skin eruption; K21.9 Gastro-esophageal reflux disease without esophagitis; M19.90 Unspecified osteoarthritis, unspecified site; J43.8 Other emphysema; E66.01 Morbid (severe) obesity due to excess calories; G25.81 Restless legs syndrome; G47.33 Obstructive sleep apnea (adult) (pediatric); Z68.43 Body mass index [BMI] 50.0-59.9, adult; Z74.09 Other reduced mobility; Z87.01 Personal history of pneumonia (recurrent); Z87.891 Personal history of nicotine dependence; Z79.899 Other long term (current) drug therapy; X58.XXXD Exposure to other specified factors, subsequent encounter ==

== ENCOUNTER → 2021-03-03 | Outpatient (CLI) | payer OTHER | LOC: HYPER 10:09 | PROVIDERS: ATTEND Emergency Medicine | DX: I83.212 Varicose veins of right lower extremity with both ulcer of calf and inflammation (principal); L97.211 Non-pressure chronic ulcer of right calf limited to breakdown of skin; S80.822D Blister (nonthermal), left lower leg, subsequent encounter; L03.116 Cellulitis of left lower limb; I89.0 Lymphedema, not elsewhere classified; R60.0 Localized edema; R21 Rash and other nonspecific skin eruption; J43.8 Other emphysema; E66.01 Morbid (severe) obesity due to excess calories; K21.9 Gastro-esophageal reflux disease without esophagitis; M19.90 Unspecified osteoarthritis, unspecified site; G25.81 Restless legs syndrome; G47.33 Obstructive sleep apnea (adult) (pediatric); Z68.43 Body mass index [BMI] 50.0-59.9, adult; Z74.09 Other reduced mobility; Z87.01 Personal history of pneumonia (recurrent); Z87.891 Personal history of nicotine dependence; X58.XXXD Exposure to other specified factors, subsequent encounter ==